=== PATIENT | male | born 1970 | race Caucasian/White ===

== ENCOUNTER 2017-10-16 18:25 | Emergency (ER) | payer MEDICAID, OTHER, SELFPAY ==
[~2017-10-16] VITALS: Ht 193 cm; Wt 120.0 kg
[2017-10-16 18:27] VITALS: BP 136/86
[2017-10-16] MEDS ORDERED: KETOROLAC 30 MG/1 ML IM ONE (19:00)
[2017-10-16] MEDS ORDERED: KETOROLAC 30 MG/1 ML ONE (19:24)
[2017-10-16] MEDS ORDERED: DIAZEPAM 5 MG TABLET ONE (19:24)
[2017-10-16] MEDS ORDERED: HYDROmorphone 1 MG/ML, 1ML ONE (19:24)
[2017-10-16] MEDS ORDERED: DIAZEPAM 5 MG TABLET PO ONE (19:30)
[2017-10-16] MEDS ORDERED: HYDROmorphone 1 MG/ML, 1ML IM ONE (19:30)
== END 2017-10-16 20:31 | disposition home or self-care (01) ==
LOC: ED 20:01
DX: S33.5XXA Sprain of ligaments of lumbar spine, initial encounter (principal); X58.XXXA Exposure to other specified factors, initial encounter; Y93.89 Activity, other specified; Y92.89 Other specified places as the place of occurrence of the external cause; Y99.9 Unspecified external cause status
CPT/HCPCS: 96372; 99284; J1170; J1885